=== PATIENT | female | born 1970 | race African-American/Black ===

== ENCOUNTER 2019-07-03 19:08 | Inpatient (IN) | payer OTHER ==
[~2019-07-03] VITALS: Ht 170.2 cm; Wt 94.6 kg
[2019-07-03 19:10] VITALS: BP 134/72
[2019-07-03 19:43] LABS: ABSOLUTE NEUTROPHILS 3.8 thou/uL (1.4-8.2); BASOPHILS 0.7 % (0.0-2.0); EOSINOPHILS 2.4 % (0.0-3.0); HEMATOCRIT 36.8 % (37.0-47.0); LYMPHOCYTES 32.4 % (24.0-44.0); MCH 26.9 pg (26.0-34.0); MCHC 32.6 g/dL (28.0-37.0); MCV 82.6 fL (80.0-100.0); MONOCYTES 6.5 % (1.0-8.0); PLATELET COUNT 257 thou/uL (150-400); RBC 4.46 mil/uL (4.20-5.00); RDW 14.4 % (10.5-14.5); WBC 6.6 thou/uL (4.0-11.0)
[2019-07-03 19:56] LABS: ANION GAP 3 mmol/L (7-16); BUN 6 mg/dL (7-18); CHLORIDE 101 mmol/L (98-107); CO2 33 mmol/L (21-32); CREATININE 0.9 mg/dL (0.6-1.0); GLUCOSE 306 mg/dL (74-106); POTASSIUM 3.4 mmol/L (3.5-5.1); SODIUM 137 mmol/L (136-145)
[2019-07-03 20:06] LABS: MAGNESIUM 1.8 mg/dL (1.8-2.4); TROPONIN-I <0.06 ng/mL (<0.06)
[2019-07-03 21:22] VITALS: BP 127/76
--- NOTE | 2019-07-03 21:26 | NUR ---
HAND OFF FAXED TO [facility]
[2019-07-03] MEDS ORDERED: TEGRETOL XR400 MG PO (22:29)
[2019-07-03] MEDS ORDERED: CHILDREN'S ZYRT10 M1 PO (22:30)
[2019-07-03] MEDS ORDERED: FLEXERIL PO (22:31)
[2019-07-03] MEDS ORDERED: DIAZEPAM 5 MG5 MG PO (22:32)
[2019-07-03] MEDS ORDERED: SLEEP AID50 MG PO (22:34)
[2019-07-03] MEDS ORDERED: CYMBALTA30 MG PO (22:35)
[2019-07-03] MEDS ORDERED: COLACE100 MG PO (22:37)
[2019-07-03] MEDS ORDERED: IPRAT-ALBUT 0.5-3 ML INH (22:39)
[2019-07-03] MEDS ORDERED: FAMOTIDINE 10 M10 MG PO (22:40)
[2019-07-03] MEDS ORDERED: BUSPIRONE HCL10 MG PO (22:41)
[2019-07-03] MEDS ORDERED: FUROSEMIDE 20 M20 MG PO (22:42)
[2019-07-03] MEDS ORDERED: HUMALOG100 UNIT/1 SUBQ (22:43)
[2019-07-03] MEDS ORDERED: LEVEMIR100 UNIT/1 SUBQ (22:46)
[2019-07-03] MEDS ORDERED: GLIPIZIDE 10 MG10 MG PO (22:47)
[2019-07-03] MEDS ORDERED: SINGULAIR 10 MG10 M1 PO (22:48)
[2019-07-03] MEDS ORDERED: LOPRESSOR50 MG PO (22:49)
[2019-07-03] MEDS ORDERED: LINZESS290 MCG PO (22:50)
[2019-07-03] MEDS ORDERED: MOBIC7.5 MG PO (22:51)
[2019-07-03] MEDS ORDERED: ZOFRAN4 MG PO (22:52)
[2019-07-03] MEDS ORDERED: MIRALAX119 GM PO (22:52)
[2019-07-03] MEDS ORDERED: ROXICODONE30 M1 PO (22:55)
[2019-07-03] MEDS ORDERED: SYMBICORT160 MCG/4. INH (22:56)
[2019-07-03] MEDS ORDERED: SIMVASTATIN80 MG PO (22:57)
[2019-07-03 23:27] VITALS: BP 142/66
--- NOTE | 2019-07-04 02:56 | NUR ---
PT ADMITTED FROM ED WITH BIGEMINY AND PALPITATIONS.ARRIVED TO UNIT VIA CART ACCOMPANIED BY THE FRIEND.A/OX4.VSS.PT DENIES PALPITATIONS,CHEST PAIN UPON ARRIVAL.C/O PAIN TO NECK,PT S/P SURGERY TO CERVICAL.HAS ASPEN COLLAR IN PLACE.NOTED INCISIONS TO NECK ANTERIORLY W/STERISTRIP IN PLACE LEFT DOUBLE LUMEN CENTRAL LINE IN PLACE.MAGNESIUM AND POTASSIUM BEING REPLACED.ASSESSMENT DOCUMENTED.PAIN MANAGED WITH PAIN MEDS PER ORDERS.UP WITH ASSIST TO [facility].POC IS TO HAVE CARDIOLOGY SEE THE PATIENT AND HAVE ECHO THEN TRANSFER BACK TO [facility].WILL CONT TO MONITOR PER POC.
[2019-07-04 06:36] VITALS: BP 118/71
[2019-07-04] MEDS ORDERED: LANTUS SUBQ (09:28)
[2019-07-04] MEDS ORDERED: K-DUR 20 MEQ T20 MEQ PO (09:33)
[2019-07-04 09:58] VITALS: BP 123/94
--- NOTE | 2019-07-04 10:09 | 2DMMODE ---
[facility] [place] [address] 2 D/M-MODE ECHOCARDIOGRAM Name: MOHSEN CHILDRESSRA Rayo Room #: 209-P ADM IN .R.#: [id number] Admission: 07/03/19 Attend Phys: Cain Mejia MD Discharge: Date of : 74 Report #: [id number] THIS REPORT FOR: cc: STEPHEN - No family physician/PCP STEPHEN - No family physician/PCP Rene Anne MD [facility] ~ APPROVED REPORT Study performed: 07/04/2019 09:01:03 EXAM: Comprehensive 2D, Doppler, and color-flow Echocardiogram Patient Location: Bedside Room #: 209 Status: routine BSA: 2.06 HR: 94 bpm BP: 118/71 mmHg Rhythm: NSR Other Information Study Quality: Technically Difficult Technically limited study due to body habitus, inability to position patient. Indications Arrhythmia Diabetes HLD 2D Dimensions RVDd: 28.71 mm IVSd: 11.08 (7-11mm) LVOT Diam: 21.83 (18-24mm) LVDd: 34.15 mm PWd: 9.96 (7-11mm) Ascending Ao: 25.82 (22-36mm) LVDs: 23.23 (25-40mm) Aortic Root: 28.94 mm Volumes Left Atrial Volume (Systole) Single Plane 4CH: 23.39 mL Single Plane 2CH: 19.21 mL LA ESV Index: 11.00 mL/m2 Aortic Valve AoV Peak Lucas.: 1.11 m/s [facility] [address] [address] 2 D/M-MODE ECHOCARDIOGRAM Name: ARSEN CHILDRESS Room #: 209-P [facility] IN [facility]#: [id number] Admission: 07/03/19 Attend Phys: Cain Mejia MD Discharge: Date of : 74 Report #: [id number] Peak Gr.: 4.96 mmHg LVOT Max P.30 mmHg LVOT Max V: 0.76 m/s SHRUTI Vmax: 2.55 cm2 Mitral Valve E/A Ratio: 0.8 MV Decel. Time: 123.92 ms MV E Max Lucas.: 0.80 m/s MV A Lucas.: 1.06 m/s MV PHT: 35.94 ms IVRT: 131.49 ms Pulmonary Valve PV Peak Lucas.: 1.36 m/s PV Peak Gr.: 7.72 mmHg Left Ventricle The left ventricle is normal size. There is normal LV segmental wall motion. There is normal left ventricular wall thickness. The left ventricular systolic function is normal. The left ventricular ejection fraction is within the normal range. LVEF is 60-65%. Mild diastolic dysfunction is present (impaired relaxation pattern). Right Ventricle The right ventricle is normal size. The right ventricular systolic function is normal. Atria The left atrium size is normal. The right atrium size is normal. Aortic Valve The aortic valve is normal in structure. No aortic regurgitation is present. There is no aortic valvular stenosis. Mitral Valve The mitral valve is normal in structure. There is no mitral valve regurgitation noted. No evidence of mitral valve stenosis. Tricuspid Valve The tricuspid valve is normal in structure. There is no tricuspid valve regurgitation noted. Unable to assess PA pressure. Pulmonic Valve Pulmonic valve is not well visualized. [facility] [place] [address] 2 D/M-MODE ECHOCARDIOGRAM Name: MOHSEN CHILDRESSRA Girma Room #: 209-P ADM IN M.R.#: [id number] Admission: 07/03/19 Attend Phys: Cain Mejia MD Discharge: Date of : 74 Report #: [id number] Great Vessels The aortic root is normal in size. IVC is not visualized. Pericardium There is no pericardial effusion. <Conclusion> The left ventricular systolic function is normal. There is normal LV segmental wall motion. LVEF is 60-65%. Mild diastolic dysfunction is present (impaired relaxation pattern). The aortic valve is normal in structure. No aortic regurgitation or stenosis The mitral valve is normal in structure. No mitral valve regurgitation. Unable to assess pulmonary artery pressure. There is no pericardial effusion. <ELECTRONICALLY SIGNED> By: Rene Anne MD, [facility] 07/04/19 1008 1008 [id number] Rene Anne MD, FACC /INF
--- NOTE | 2019-07-04 10:21 | EKG ---
[facility] [place] [address] ELECTROCARDIOGRAM REPORT Name: ARSEN CHILDRESS Room #: 209-P ADM IN M.R.#: [id number] Admission: 07/03/19 Attend Phys: Cain Mejia MD Discharge: Date of : 74 Report #: [id number] THIS REPORT FOR: cc: FAM - No family physician/PCP FAM - No family physician/PCP Rene Anne MD [facility] ~ THIS REPORT FOR: //name// [facility] ED Test Date: 2019-07-03 Test Time: 20:19:12 Pat Name: ARSEN CHILDRESS Department: Room: 209 Gender: F Supervisor Assembling: MIN : 1970 Requested By: Cheng Waldron Order Number: [id number] MD: Rene Anne Measurements Intervals [place] Rate: 98 P: 59 NV: 168 QRS: 82 QRSD: 90 T: 173 QT: 419 QTc: 536 Interpretive Statements Sinus rhythm Nonspecific T abnormalities, diffuse leads Prolonged QT interval No previous ECG available for comparison Electronically Signed On 07-04-2019 10:20:49 PRODUCTION GRIP by Rene Anne [email or web address] <ELECTRONICALLY SIGNED> By: Rene Anne MD, FACC 03/07/20 1020 18 18 Rene Anne MD, [facility] /EPI
[2019-07-04 10:40] LABS: ABSOLUTE NEUTROPHILS 3.7 thou/uL (1.4-8.2); BASOPHILS 0.7 % (0.0-2.0); EOSINOPHILS 2.8 % (0.0-3.0); HEMATOCRIT 37.4 % (37.0-47.0); HEMOGLOBIN 12.2 gm/dL (12.0-15.0); LYMPHOCYTES 32.4 % (24.0-44.0); MCH 27.2 pg (26.0-34.0); MCHC 32.6 g/dL (28.0-37.0); MCV 83.4 fL (80.0-100.0); MONOCYTES 5.6 % (1.0-8.0); PLATELET COUNT 278 thou/uL (150-400); POLYS 58.5 % (36.0-66.0); RBC 4.48 mil/uL (4.20-5.00); RDW 14.9 % (10.5-14.5); WBC 6.3 thou/uL (4.0-11.0)
[2019-07-04 10:59] LABS: ANION GAP 4 mmol/L (7-16); BUN 8 mg/dL (7-18); CALCIUM 9.2 mg/dL (8.5-10.1); CHLORIDE 100 mmol/L (98-107); CO2 34 mmol/L (21-32); CREATININE 0.9 mg/dL (0.6-1.0); GLUCOSE 287 mg/dL (74-106); MAGNESIUM 2.1 mg/dL (1.8-2.4); POTASSIUM 4.1 mmol/L (3.5-5.1); SODIUM 138 mmol/L (136-145); TROPONIN-I <0.06 ng/mL (<0.06)
[2019-07-04 12:52] VITALS: BP 126/70
[2019-07-04 16:41] VITALS: BP 130/68
--- NOTE | 2019-07-04 18:08 | NUR ---
ASSESSMENT CHARTED. PT ALERT AND ORIENTED. PRN PAIN MED GIVEN ORDERED. EVALUATED BY SPEECH. ORDERS GIVEN TO KEEP PT NPO FOR NOW TILL SATURDAY FOR MORE EVALUATION. DR. CURRY AWARE. PT REPORT HER THAT HER COLLAR BRACE MISSING. DR CURRY AND WIRE PHOTO OPERATOR NEWS NOTIFIED. FAMILY AT THE BEDSIDE WILL CONTINUE TO MONITOR.
[2019-07-04 19:58] VITALS: BP 126/59
--- NOTE | 2019-07-04 23:53 | NUR ---
ASSESSMENT: PT REMAIN ALERT AND ORIENT TIMES FOUR. C/O NECK PAIN. C-COLLAR ON PT. PT CONTINUES TO ADJUST COLLAR AND STATE THAT IT HURTS BEING ON. ENCOURAGED TO LEAVE COLLAR IN PLACE FOR BETTER HEALING. S/O AT THE BEDSIDE. VSS, AFEBRILE. SR PER MONITOR. PAIN MEDS GIVEN PRN WITH PARTIAL RELIEF. SLOW PROGRESS TOWARDS DC GOALS. WILL CONTINUE TO MONITOR.
[2019-07-05 05:27] VITALS: BP 115/65
[2019-07-05 07:17] LABS: CHOLESTEROL 122 mg/dL (<200); HDL CHOLESTEROL 43 mg/dL (>40); LDL CHOLESTEROL 56 mg/dL (<100); TC:HDL 2.8 Ratio (Not establshd); TRIGLYCERIDE 119 mg/dL (<150); VLDL 24 mg/dL (<40)
[2019-07-05 07:30] VITALS: BP 140/76
[2019-07-05 11:30] VITALS: BP 132/70
[2019-07-05 16:00] VITALS: BP 119/65
[2019-07-05 20:15] VITALS: BP 135/64
--- NOTE | 2019-07-05 22:07 | NUR ---
PATIENT TOOK OF NECK BRACE, EDUCATED ON THE IMPORTANCE OF WEARING TO PREVENT INJURY. PATIENT COMPLAINING PAIN NOT RELIEVED WITH MEDICATION. NURSE PRACTITIONER NOTIFED OF PATIENT PAIN MANAGEMENT AND NOT WEARING NECK BRACE. NEW ORDERS NOTED.
--- NOTE | 2019-07-05 22:18 | NUR ---
ASSUMED CARE OF PATIENT AT 0700. ASSESSMENT COMPLTED. TELE STRIP PRINTED AND PLACED IN CHART. PATIENT'S SIGNIFICANT OTHER AT BEDSIDE. PATIENT WORE HER NECK BRACE 80% OF THE DAY AND HAD TO BE REMINDED TO PUT IT BACK ON TWICE. PATIENT IS ON STRICT NPO AND MEDS THAT COULD BE TRANSFERRED TO IV, WERE TRANSFERRED PRIOR TO PHYSICIAN ASSISTANT SURGERY. PATIENT CALLED OUT AT ONE POINT SAYING THAT SHE WAS CHOKING ON SOMETHING. WHEN I WALKED IN THE ROOM, THE PATIENT HAD HER NECK BRACE OFF AND HAD REMOVED THE DRESSING OF HER IJ, PULLING ON HER IJ. I HAD TO PLACE A TEMPORARY STERILE DRESSING ON AND ASK IV TEAM TO EVALUATE IT. THE PATIENT HAD DAMAGED THE IV AND IT HAD TO BE REMOVED, IV TEAM PLACED A NEW PERIPHERAL IV. NEW IV PAIN MED ADDED AND PATIENT TAKING ALTERNATING PAIN MEDS EVERY TWO HOURS BUT CONTINUES TO CALL OUT HOURLY, STATING THAT SHE NEVER RECEIVED THEM. SHE ALSO ASKED FOR HER NURSE EVERY TIME I WALKED IN THE ROOM, NOT REMEMBERING THAT I AM HER NURSE. PATIENT IS ADAMANT THAT SHE WANTS TO GO TO REHAB TOMORROW AND VERY CONCERNED THAT HER ROOM WILL BE TAKEN IF SHE DOESN'T GET THERE QUICKLY. PATIENT TO CONTINUE WITH POC.
--- NOTE | 2019-07-06 04:04 | NUR ---
NO OVERNIGHT EVENTS. PT. STILL STRUGGLING WITH PAIN MANGEMENT. ADDITION OF DILAUDID SEEMS TO BE HELPING OUT THE MOST. ASSESSMENT AND VITAL SIGNS CHARTED. PT. TO GET SWALLOW STUDY DONE TODAY THEN DISCHARGE PER PREVIOUS RN REPORT. CONTINUE CURRENT POC. WILL CONTINUE TO MONITOR.
[2019-07-06 05:08] VITALS: BP 115/43
[2019-07-06 07:45] VITALS: BP 137/83
[2019-07-06 08:45] VITALS: BP 137/83
[2019-07-06 11:45] VITALS: BP 129/68
[2019-07-06 12:25] VITALS: BP 129/68
[2019-07-06] MEDS ORDERED: ACETAMINOPHEN325 M1 PO (13:53)
[2019-07-06 14:32] VITALS: BP 129/68
--- NOTE | 2019-07-06 14:48 | NUR ---
Patient transferred to [facility] from [facility]. Patient rec neck sx at [facility] and transferred to [facility] for palpatations. Sp with [facility] and they evaled patient while at [facility]. They rec auth from insurance. Clinical update faxed to [facility]. Sp with patient who reports that was her plan to dc to rehab at [facility]. Updated phys, rec orders for dc today to rehab. Updated [facility] and faxed orders. [facility] transport for 1630. Updated patient offered to call mom but patient reports she will call. Chart to be copied. Rn has radha for report.
--- NOTE | 2019-07-06 18:24 | NUR ---
PT CARE ASSUMED APPROXIMATELY 0700. PT ASSESSMENTS CHARTED. PT MEDICATION DELIVERED. PT BEING TRANSFERRED TO [facility]. REPORT GIVEN. TELE D/C'D. IV D/C'D.
== END 2019-07-06 19:10 | DRG 310 ==
LOC: ER 19:08 → EROBS 20:42 → 2N 20:42
PROVIDERS: Emergency Medicine; Nurse Practitioner; ADMIT Hospitalist
PROC: 02HV33Z Insertion of Infusion Device into Superior Vena Cava, Percutaneous Approach (ICD-10-PCS; principal; 2019-07-04)
DX: I49.3 Ventricular premature depolarization (principal); E87.6 Hypokalemia; F41.9 Anxiety disorder, unspecified; F32.9 Major depressive disorder, single episode, unspecified; E83.42 Hypomagnesemia; E78.5 Hyperlipidemia, unspecified; K58.9 Irritable bowel syndrome, unspecified; E11.42 Type 2 diabetes mellitus with diabetic polyneuropathy; F11.90 Opioid use, unspecified, uncomplicated; J45.909 Unspecified asthma, uncomplicated; G89.29 Other chronic pain; I10 Essential (primary) hypertension; Z96.643 Presence of artificial hip joint, bilateral; R13.10 Dysphagia, unspecified; K21.9 Gastro-esophageal reflux disease without esophagitis; Z79.4 Long term (current) use of insulin; Z79.899 Other long term (current) drug therapy; Z88.8 Allergy status to other drugs, medicaments and biological substances; Z91.018 Allergy to other foods; Z91.048 Other nonmedicinal substance allergy status; Z99.3 Dependence on wheelchair; Z79.84 Long term (current) use of oral hypoglycemic drugs; Z98.1 Arthrodesis status
CPT/HCPCS: 10081; 10797